=== PATIENT | female | born 1990 | race African-American/Black ===

== ENCOUNTER 2016-11-19 15:07 | Observation (INO) | payer OTHER ==
[~2016-11-19] VITALS: Ht 162.6 cm; Wt 97.3 kg
[2016-11-19 15:27] VITALS: BP 154/94
== END 2016-11-19 18:59 | disposition home or self-care (01) | DRG 347 ==
LOC: ER 15:13 → OVERFLOW 17:17 → ER 18:59 → OVERFLOW 18:59
PROVIDERS: ADMIT Emergency Medicine; ATTEND Emergency Medicine
DX: M54.5 Low back pain (principal)
CPT/HCPCS: 99281; G0378

== ENCOUNTER 2016-11-20 11:59 | Emergency (ER) | payer OTHER ==
[~2016-11-20] VITALS: Ht 162.6 cm; Wt 97.1 kg
[2016-11-20 13:10] LABS: Basophils # (auto) 0 uL; Basophils % (auto) 0.4 % (0.0-2.0); Eosinophils # (auto) 0.2 uL; Eosinophils % (auto) 2.8 % (0.0-7.0); Hematocrit 37.8 % (36.0-46.0); Hemoglobin 12.6 g/dL (12.2-16.2); Lymphocytes # (auto) 1.4 uL; Lymphocytes % (auto) 16.6 % (10.0-50.0); Mean Corpuscular Hemoglobin 30.6 pg (28.0-32.0); Mean Corpuscular Hgb Conc. 33.4 g/dL (32.0-36.0); Mean Corpuscular Volume 91.6 fL (80.0-100.0); Monocytes # (auto) 0.7 uL; Monocytes % (auto) 8.4 % (0.0-12.0); Neutrophils # (auto) 6.2 uL; Neutrophils % (auto) 71.8 % (37.0-80.0); Platelet Count (auto) 324 10^3/uL (140-450); Red Cell Distribution Width 13.4 % (11.6-16.0); White Blood Cell 8.6 10^3/uL (4.4-10.8)
[2016-11-20 13:35] LABS: Albumin 3.5 g/dL (3.4-5.0); BUN/Creatinine Ratio 10.3; Bilirubin, Total 0.7 mg/dL (0.2-1.0); Calcium 9.1 mg/dL (8.5-10.1); Total Protein 8.5 g/dL (6.4-8.2)
[2016-11-20 13:42] LABS: Urine Bilirubin Negative (Negative); Urine Color Yellow (Yellow); Urine Glucose Normal (Normal); Urine Ketone Negative (Negative); Urine Nitrite Negative (Negative); Urine RBC 14 /hpf (0 - 4); Urine Squamous Epithelial Cell FEW /hpf (<5); Urine Urobilinogen Normal (Negative)
[2016-11-20 13:44] LABS: Urine Blood 1+ /uL (Negative)
[2016-11-20] MEDS ORDERED: SODIUM CHLORIDE 0.9% 1,000 ML IVB ONE (13:56)
[2016-11-20] MEDS ORDERED: MORPHINE SULFATE 4 MG/ML SYRG IV ONE (14:00)
[2016-11-20] MEDS ORDERED: ONDANSETRON HCL 4 MG/2 ML VIAL IV ONE (14:00)
[2016-11-20] MEDS ORDERED: cefTRIAXone 1GM/50ML D5W 50 ML IV ONE (14:15)
[2016-11-20 16:00] VITALS: BP 149/79
== END 2016-11-20 17:37 | disposition home or self-care (01) ==
LOC: ER 12:02
DX: N39.0 Urinary tract infection, site not specified (principal); R11.2 Nausea with vomiting, unspecified; J45.909 Unspecified asthma, uncomplicated
CPT/HCPCS: 36415; 76830; 76856; 80053; 81001; 81025; 85025; 94761; 96365; 96375; 99285; J0696; J2270; J2405; J7030; 96361

== ENCOUNTER 2023-12-08 01:33 | Emergency (ER) | payer MEDICAID ==
[~2023-12-08] VITALS: Ht 162.6 cm; Wt 97.7 kg
[2023-12-08 01:44] VITALS: BP 142/94; PULSE 88; RESP 18; TEMP 97.8; O2SAT 95
[2023-12-08] MEDS ORDERED: ALBU108A5 IN (03:28)
[2023-12-08] MEDS ORDERED: IBUP-1455 PO (03:29)
[2023-12-08] MEDS: KETOROLAC TROMETH 60MG/2ML VIAL IM ONE (03:29)
[2023-12-08] MEDS ORDERED: CYCL-837 PO (03:29)
[2023-12-08] MEDS ORDERED: AZIT500T66 PO (04:26)
== END 2023-12-08 04:38 | disposition home or self-care (01) ==
LOC: ER 01:33
DX: M54.6 Pain in thoracic spine (principal); I10 Essential (primary) hypertension; J45.909 Unspecified asthma, uncomplicated
CPT/HCPCS: 71045; 96372; 99283; J1885